=== PATIENT | male | born 1995 | race African-American/Black ===

== ENCOUNTER 2018-09-05 | Emergency (ER) | payer OTHER ==
[2018-09-05 16:10] LABS: BILIRUBIN NEGATIVE (NEGATIVE); BLOOD NEGATIVE (NEGATIVE); CLARITY SL CLOUDY (CLEAR); COLOR YELLOW (YELLOW); GLUCOSE NEGATIVE (NEGATIVE); KETONE TRACE (NEGATIVE); LEUKO ESTERASE 1+ (NEGATIVE); NITRITE POSITIVE (NEGATIVE); SPECIFIC GRAVITY 1.025 (1.005-1.030)
[2018-09-05 16:18] LABS: BACTERIA 3+; WBC 41-50 wbc/hpf (0-5)
[2018-09-05] MEDS ORDERED: VIBRAMYCIN100 MG PO (18:18)
[2018-09-05] MEDS ORDERED: NAPROSYN500 MG PO (18:19)
== END 2018-09-05 18:31 | disposition home or self-care (01) ==
PROVIDERS: Nurse Practitioner Family
DX: N45.1 Epididymitis (principal); N39.0 Urinary tract infection, site not specified